=== PATIENT | male | born 1990 | race Caucasian/White ===

== ENCOUNTER 2023-12-24 02:50 | Emergency (ER) | payer OTHER, MEDICAID ==
[~2023-12-24] VITALS: Ht 188 cm; Wt 86.4 kg
[2023-12-24] MEDS: levETIRAcetam 1000 mg/100ml 100 ML IV ONE (03:22)
--- NOTE | 2023-12-24 03:22 | ED.PDOC ---
History of Present Illness HPI Comments 33-year-old male presents to the ED s/p seizure activity at home x 10 minutes ago. Patient was found on the floor by girlfriend after hearing a thump and found patient actively seizing. Patient states that he did take his medication today, but did endorse drinking alcohol earlier in the evening. Patient has some oral trauma to his bottom lip, but no bleeding is noted. Patient is alert and oriented at this time. Chief Complaint: Seizure Time Seen by MD: 03:15 Reviewed Notes: Medications, Allergies Allergies: Coded Allergies: Peanut-containing Drug Products (Verified Allergy, Unknown, 12/24/23) Information Source: Patient Mode of Arrival: EMS Severity: Moderate Timing: Minutes Duration: Since onset Prehospital treatment: None Past Medical History PAST MEDICAL HISTORY: Seizures Surgical History: Denies all surgeries Family History Family History: Reviewed,noncontributory to illness Social History Smoker: Non-Smoker Alcohol: Denies ETOH Use Drugs: Denies Drug Use Lives In: Home Constitutional: denies: chills, diaphoresis, fatigue, fever, malaise, sweats, weakness, others EENTM: denies: blurred vision, double vision, ear bleeding, ear discharge, ear drainage, ear pain, ear ringing, eye pain, eye redness, hearing loss, mouth pain, mouth swelling, nasal discharge, nose bleeding, nose congestion, nose pain, photophobia, tearing, throat pain, throat swelling, voice changes, others Respiratory: denies: cough, hemoptysis, orthopnea, SOB at rest, shortness of breath, SOB with excertion, stridor, wheezing, others Cardiovascular: denies: chest pain, dizzy spells, diaphoresis, Dyspnea on exertion, edema, irregular heart beat, left arm pain, lightheadedness, palpitations, PND, syncope, others Gastrointestinal: denies: abdomen distended, abdominal pain, blood streaked bowels, constipated, diarrhea, dysphagia, difficulty swallowing, hematemesis, melena, nausea, poor appetite, poor fluid intake, rectal bleeding, rectal pain, vomiting, others Genitourinary: denies: burning, dysuria, flank pain, frequency, hematuria, incontinence, penile discharge, penile sore, pain, testicle pain, testicle swelling, urgency, others Neurological: reports: seizure; denies: dizziness, fainting, headache, left sided numbness, left sided weakness, numbness, paresthesia, pre-existing deficit, right sided numbness, right sided weakness, speech problems, tingling, tremors, weakness, others Musculoskeletal: denies: back pain, gout, joint pain, joint swelling, muscle pain, muscle stiffness, neck pain, others Integumetry: denies: bruises, change in color, change in hair/nails, dryness, laceration, lesions, lumps, rash, wounds, others Allergic/Immunocompromised: denies: Difficulty Healing, Frequent Infections, Hives, Itching, others Hematologic/Lymphatic: denies: anemia, blood clots, easy bleeding, easy bruising, swollen glands, others Endocrine: denies: excessive hunger, excessive sweating, excessive thirst, excessive urination, flushing, intolerance to cold, intolerance to heat, unexplained weight gain, unexplained weight loss, others Psychiatric: denies: anxiety, bipolar disorder, depression, hopeless, panic disorder, schizophrenia, sleepless, suicidal, others All Other Systems: Reviewed and Negative Physical Exam General Appearance: Mild Distress, Normal HEENT: Normal ENT Inspection, Pharynx Normal, TMs Normal Neck: Full Range of Motion, Non-Tender, Normal, Normal Inspection Respiratory: Chest Non-Tender, Lungs Clear, No Accessory Muscle Use, No Respiratory Distress, Normal Breath Sounds Cardiovascular: No Edema, No JVD, No Murmur, No Gallop, Normal Peripheral Pulses, Regular Rate/Rhythm Breast Exam: Deferred Gastrointestinal: No Organomegaly, Non Tender, No Pulsatile Mass, Normal Bowel Sounds, Soft Genitalia: Deferred Pelvic: Deferred Rectal: Deferred Extremities: No calf tenderness, Normal capillary refill, Normal inspection, Normal range of motion, Non-tender, No pedal edema Musculoskeletal : Apperance: Normal Neurologic: Alert, electronics engineer II-XII nml as Tested, No Motor Deficits, Normal Affect, Normal Mood, No Sensory Deficits Cerebellar Function: Normal Reflexes: Normal Skin: Dry, Normal Color, Warm Lymphatic: No Adenopathy Was a procedure done? Was a procedure done?: No Differential Dx Considerations may include: Seizure versus pseudoseizures X-Ray, Labs, Meds, VS Vital Signs Date Time Temp Pulse Resp B/P (MAP) Pulse Ox O2 Delivery O2 Flow Rate FiO2 12/24/23 03:00 98.1 102 18 141/89 (106) 99 Lab Test 12/24/23 03:20 12/24/23 03:15 Range/Units Plasma/Serum Blood Alcohol < 3.0 <10 mg/dL Urine Opiates Screen Pending Urine Fentanyl Screen Pending Urine Barbiturates Screen Pending Urine Phencyclidine Screen Pending Urine Amphetamines Screen Pending Urine Benzodiazepines Screen Pending Urine Cocaine Screen Pending Urine Cannabinoids Screen Pending Current Medications Medications (Trade) Dose Ordered Sig/Yvette Route Start Time Stop Time Status Last Admin Levetiracetam 100 ml @ 400 mls/hr ONCE ONCE IV 12/24/23 03:15 12/24/23 03:29 DC 12/24/23 03:22 PATIENT: AISHWARYA PINAT: [id number]: [id number] : 1990 LOC: ER ROOM / BED: / AGE / SEX: 33 / M ADM STATUS: REG ER SERVICE 9 ORDERING PHYSICIAN: LUZ MARIA THOMAS MD PROCEDURE(s): HWOCT - HEAD WITHOUT CONTRAST REASON: Seizure ORDER NUMBER(s): [id number], ACCESSION NUMBER(s): [id number] EXAM: CT HEAD WITHOUT CONTRAST INDICATION: Seizure TECHNIQUE: CT of the head without intravenous contrast. Radiation Dose : 1. Head: CT Dose: CTDI volume is 64.32 mGy. Dose-length product is 1030.89 mGy*cm The dose indicators for CT are the volume Computed Tomography (CT) Dose Index (CTDIvol) and the Dose Length Product (DLP), and are measured in units of mGy and mGy-cm, respectively. These indicators are not patient dose, but values generated from the CT scanner acquisition factors. The report includes radiation exposure data for exposures received during this examination. COMPARISON: None FINDINGS: There is no evidence of acute intracranial hemorrhage, extra-axial collection, mass effect, midline shift, herniation or hydrocephalus. The ventricles, sulci and cisterns are age appropriate. The goldstein-white differentiation is intact. The visualized paranasal sinuses and mastoid air cells are clear. The surrounding soft tissues and osseous structures are unremarkable. IMPRESSION: No acute intracranial abnormality. ATED BY: SAAD PORTILLO MD DICTATED DATE/TIME: 12/24/23438 SIGNED BY: SAAD PORTILLO MD SIGNED DATE/TIME: 12/24/23438 Alcohol level is less than three.. The patient is alert oriented signs for. He bit his lip otherwise he claims to be compliant with medication. He was educated about drinking in seizures not coexisting together. Time of 1ST Reevaluation: 03:45 Reevaluation 1ST: Unchanged Patient Education/Counseling: Diagnosis, Treatment, Prognosis Family Education/Counseling: No Family Present Departure 1 Departure Time of Disposition: 05:00 Impression: Primary Impression: Alcohol abuse Additional Impression: Seizures Disposition: HOME / SELF CARE / HOMELESS Condition: Fair Additional Instructions: Reassessed patient, vital signs stable. Denies any new symptoms. Patient is able to tolerate PO and ambulate/be mobile at their baseline without concern. Risks and benefits of all medications given or prescribed, if any, discussed. All lab work, imaging and diagnostic studies were reviewed by me. The patient was counseled extensively on my clinical impression, diagnosis, expected course of the disease, and plan, including their follow-up care. Will discharge patient. Patient instructed to follow up with Primary Care Physician within 24-48 hours. Strict return precautions given for further exacerbation of symptoms or for new symptoms. The patient was given the opportunity to ask questions and all questions were answered by myself and the nursing/tech staff. Patient is in agreement with the care plan. The patient verbally expressed understanding of the discharge instructions, including the reasons to return to the Emergency Department. Sease alcohol use. Discharged With: Self Critical Care Note Critical Care Time?: Yes (35 min-critical care time only) Stability Stability form required: No Heart Score Heart Score: Heart Score Response (Comments) Value History N/A 0 EKG N/A 0 Age N/A 0 Risk Factors N/A 0 Troponin N/A 0 Total 0 I personally scribed for LUZ MARIA THOMAS MD ([email or web address]) on 12/24/23 at 03:22. Electronically submitted by Irvin Chao ([email or web address]). I personally scribed for LUZ MARIA THOMAS MD ([email or web address]) on 12/24/23 at 04:58. Electronically submitted by Irvin Chao ([email or web address]). LUZ MARIA THOMAS MD Dec 24, 2023 03:22
--- NOTE | 2023-12-24 04:41 | DVH ---
EXAM: CT HEAD WITHOUT CONTRAST INDICATION: Seizure TECHNIQUE: CT of the head without intravenous contrast. Radiation Dose : 1. Head: CT Dose: CTDI volume is 64.32 mGy. Dose-length product is 1030.89 mGy*cm The dose indicators for CT are the volume Computed Tomography (CT) Dose Index (CTDIvol) and the Dose Length Product (DLP), and are measured in units of mGy and mGy-cm, respectively. These indicators are not patient dose, but values generated from the CT scanner acquisition factors. The report includes radiation exposure data for exposures received during this examination. COMPARISON: None FINDINGS: There is no evidence of acute intracranial hemorrhage, extra-axial collection, mass effect, midline s hift, herniation or hydrocephalus. The ventricles, sulci and cisterns are age appropriate. The goldstein-white differentiation is intact. The visualized paranasal sinuses and mastoid air cells are clear. The surrounding soft tissues and osseous structures are unremarkable. IMPRESSION: No acute intracranial abnormality.
[2023-12-24 05:05] LABS: Amphetamine Screen, Urine Neg (NEGATIVE); Barbiturate Scree,Urine Neg (NEGATIVE); Benzodiazephine Screen, Urine Neg (NEGATIVE); Cannabinoid Screen, Urine Neg (NEGATIVE); Cocaine Screen, Urine Neg (NEGATIVE); Opiate Scree,Urine Neg (NEGATIVE); Phencyclidine Screen, Urine Neg (NEGATIVE)
[2023-12-24 05:18] VITALS: BP 139/82; TEMP 97.9
[2023-12-24 05:19] VITALS: PULSE 92; RESP 18; O2SAT 97
== END 2023-12-24 05:28 | disposition home or self-care (01) ==
LOC: EDBD 02:50 → ER 02:50
DX: F10.10 Alcohol abuse, uncomplicated (principal); R56.9 Unspecified convulsions; Z91.010 Allergy to peanuts
CPT/HCPCS: 36415; 70450; 80307; 80320; 96365; 99291; J1953

== ENCOUNTER 2024-10-18 06:35 | Emergency (ER) | payer MEDICAID, OTHER ==
[~2024-10-18] VITALS: Ht 175.3 cm; Wt 77.2 kg
--- NOTE | 2024-10-18 06:58 | ED.PDOC ---
HPI (NEURO) HPI Comments 33 year old male presents to the ED via EMS with a chief complaint of seizure onset today (10/18/24). Per EMS, they got a call about 1 hour ago, patient experienced a seizure, called 911, patient refused treatment. About 45 minutes after they received 2nd call, patient experienced a 2nd seizure. Upon EMS arrival, they noticed patient had deformity to bridge of nose, with nose bleeding. EMS was told by , patient has a , sleeping pattern was thrown off, it is rare for patient to experience 2 seizures in 1 day. He is taking Keppra, is compliant with medication. Patient does not recall events. PMHx seizures. No other symptoms or modifying factors present at this time. Chief Complaint: Seizure Time Seen by MD: 06:40 Reviewed Notes: Medications, Allergies Information Source: Patient, Emergency Med Personnel Mode of Arrival: EMS Severity: Moderate Timing: Hours Duration: Since onset Prehospital treatment: None Seizure Quality: Tonic-clonic Headache Quality: Other Seizure Location: Generalized Onset: At rest, With light exertion Before: Normal During: Awake History of: Seizure Disorder Modifying factors: Nothing Past Medical History PAST MEDICAL HISTORY: Seizures Surgical History: Denies all surgeries Family History Family History: Reviewed,noncontributory to illness Social History Smoker: Non-Smoker Alcohol: Denies ETOH Use Drugs: Denies Drug Use Lives In: Home Constitutional: denies: chills, diaphoresis, fatigue, fever, malaise, sweats, weakness, others EENTM: reports: nose bleeding; denies: blurred vision, double vision, ear bleeding, ear discharge, ear drainage, ear pain, ear ringing, eye pain, eye redness, hearing loss, mouth pain, mouth swelling, nasal discharge, nose congestion, nose pain, photophobia, tearing, throat pain, throat swelling, voice changes, others Respiratory: denies: cough, hemoptysis, orthopnea, SOB at rest, shortness of breath, SOB with excertion, stridor, wheezing, others Cardiovascular: denies: chest pain, dizzy spells, diaphoresis, Dyspnea on exertion, edema, irregular heart beat, left arm pain, lightheadedness, palpitations, PND, syncope, others Gastrointestinal: denies: abdomen distended, abdominal pain, blood streaked bowels, constipated, diarrhea, dysphagia, difficulty swallowing, hematemesis, melena, nausea, poor appetite, poor fluid intake, rectal bleeding, rectal pain, vomiting, others Genitourinary: denies: burning, dysuria, flank pain, frequency, hematuria, incontinence, penile discharge, penile sore, pain, testicle pain, testicle swelling, urgency, others Neurological: reports: seizure; denies: dizziness, fainting, headache, left sided numbness, left sided weakness, numbness, paresthesia, pre-existing deficit, right sided numbness, right sided weakness, speech problems, tingling, tremors, weakness, others Musculoskeletal: denies: back pain, gout, joint pain, joint swelling, muscle pain, muscle stiffness, neck pain, others Integumetry: denies: bruises, change in color, change in hair/nails, dryness, laceration, lesions, lumps, rash, wounds, others Allergic/Immunocompromised: denies: Difficulty Healing, Frequent Infections, Hives, Itching, others Hematologic/Lymphatic: denies: anemia, blood clots, easy bleeding, easy bruising, swollen glands, others Endocrine: denies: excessive hunger, excessive sweating, excessive thirst, excessive urination, flushing, intolerance to cold, intolerance to heat, unexplained weight gain, unexplained weight loss, others Psychiatric: denies: anxiety, bipolar disorder, depression, hopeless, panic disorder, schizophrenia, sleepless, suicidal, others All Other Systems: Reviewed and Negative Physical Exam General Appearance: Moderate Distress HEENT: Pharynx Normal, TMs Normal, Other (Right blood at the anterior nares possibly from fall with deformity of the nasal bone) Neck: Full Range of Motion, Non-Tender, Normal, Normal Inspection Respiratory: Chest Non-Tender, Lungs Clear, No Accessory Muscle Use, No Respiratory Distress, Normal Breath Sounds Cardiovascular: No Edema, No JVD, No Murmur, No Gallop, Normal Peripheral Pulses, Regular Rate/Rhythm Breast Exam: Deferred Gastrointestinal: No Organomegaly, Non Tender, No Pulsatile Mass, Normal Bowel Sounds, Soft Genitalia: Deferred Pelvic: Deferred Rectal: Deferred Extremities: No calf tenderness, Normal capillary refill, Normal inspection, Normal range of motion, Non-tender, No pedal edema Musculoskeletal : Apperance: Normal Neurologic: Alert, automotive glass mechanic II-XII nml as Tested, No Motor Deficits, Normal Affect, Normal Mood, No Sensory Deficits Cerebellar Function: NOT DONE Reflexes: NOT DONE Skin: Dry, Normal Color, Warm Peripheral Pulses: 3+ Radial (R), 3+ Radial (L) Lymphatic: No Adenopathy EKG EKG : Pulse Rate (adult): 120 Cardiac Rhythm: ST Was a procedure done? Was a procedure done?: No Differential Diagnosis (SZ) Seizure: Psychogenic Seizure, Closed Head Injury, CVA/TIA X-Ray, Labs, Meds, VS Vital Signs Date Time Temp Pulse Resp B/P (MAP) Pulse Ox O2 Delivery O2 Flow Rate FiO2 10/18/24 08:22 118 16 94 Room Air* 0 21 10/18/24 07:12 120 10/18/24 06:59 120 10/18/24 06:35 96.4 118 16 138/65 94 96.4 Lab Test 10/18/24 07:25 Range/Units White Blood Count 12.6 H 4.4-10.8 10^3/uL Red Blood Count 4.95 4.5-5.90 10^6/uL Hemoglobin 16.0 13.5-17.5 g/dL Hematocrit 43.7 41.0-53.0 % Mean Corpuscular Volume 88.4 80.0-100.0 fL Mean Corpuscular Hemoglobin 32.4 H 28.0-32.0 pg Mean Corpuscular Hemoglobin Concent 36.6 H 32.0-36.0 g/dL Red Cell Distribution Width 13.1 11.8-14.3 % Platelet Count 249 140-450 10^3/uL Mean Platelet Volume 9.1 6.9-10.8 fL Neutrophils (%) (Auto) 88.5 H 37.0-80.0 % Lymphocytes (%) (Auto) 5.3 L 10.0-50.0 % Monocytes (%) (Auto) 6.1 0.0-12.0 % Eosinophils (%) (Auto) 0.0 0.0-7.0 % Basophils (%) (Auto) 0.1 0.0-2.0 % Neutrophils # (Auto) 11.2 H 1.6-8.6 10 ^3/uL Lymphocytes # (Auto) 0.7 0.4-5.4 10 ^3/uL Monocytes # (Auto) 0.8 0-1.3 10 ^3/uL Eosinophils # (Auto) 0 0-0.8 10 ^3/uL Basophils # (Auto) 0 0-0.2 10 ^3/uL Nucleated Red Blood Cells 0.0 % Sodium Level 141 136-145 mmol/L Potassium Level 3.6 3.5-5.1 mmol/L Chloride Level 107 98-107 mmol/L Carbon Dioxide Level 19 L 20-31 mmol/L Anion Gap 15 5-15 Blood Urea Nitrogen 9 9-23 mg/dL Creatinine 1.21 0.700-1.30 mg/dL Glomerular Filtration Rate Calc 82 >90 mL/min BUN/Creatinine Ratio 7.4 L 10.0-20.0 Serum Glucose 148 H 74-106 mg/dL Calcium Level 9.5 8.7-10.4 mg/dL Current Medications Medications (Trade) Dose Ordered Sig/Yvette Route Start Time Stop Time Status Last Admin Levetiracetam 100 ml @ 400 mls/hr ONCE ONCE IV 10/18/24 08:00 10/18/24 08:14 DC 10/18/24 08:08 Sodium Chloride 1,000 ml @ 1,000 mls/hr Q1H ONCE IV 10/18/24 07:00 10/18/24 07:59 DC 10/18/24 08:08 Ondansetron HCl (Zofran) 4 mg ONCE ONCE IV 10/18/24 07:30 10/18/24 07:31 DC 10/18/24 08:08 Patient answers questions. He did fall landing in his face. Multiple seizures. He does take his medications. He does not remember the event. On examination deformity of the nose with dried blood. Establish intravenous access. Was given fluids. Was given Keppra. Explained to the patient. Continue monitoring. EKG reviewed does show sinus tachycardia. [address] [address] Ph: [phone] DIAGNOSTIC IMAGING Diagnostic Imaging Report : [id number] Signed PATIENT: ARNAV PINA ACCT: [id number] UNIT: [id number] : 1990 LOC: ER ROOM / BED: / AGE / SEX: 33 / M ADM STATUS: REG ER SERVICE [id number] ORDERING PHYSICIAN: LACI SANTILLAN MD PROCEDURE(s): FAC2C - MAXILLOFACIAL WITHOUT REASON: fall ORDER NUMBER(s): [id number], ACCESSION NUMBER(s): [id number] CLINICAL INDICATION: Fall TECHNIQUE: Noncontrast CT of the facial bones was performed. Sagittal and coronal reformatted images are provided. COMPARISON: CT HEAD WITHOUT CONTRAST on DOS: 12/24/23 CT Dose: CTDI volume is 66.95 mGy. Dose-length product is 1761.4 mGy*cm FINDINGS: Motion degraded study. Evaluation also limited by streak artifact from dental amalgam. No displaced fracture or dislocation. Mucosal thickening in the right maxillary sinus. Reversal of the cervical lordosis. IMPRESSION: 1. Suboptimal study due to motion artifact and streak artifact from dental amalgam. No displaced fracture. All CT scans at this medical facility are performed using dose modulation techniques as appropriate to a performed exam including the following: Automated exposure control was utilized; adjustment of the MA and/or KV according to patient size; and use of iterative reconstruction technique. ATED BY: BRIAN GOVEA MD DICTATED DATE/TIME: 10/18/24 075 SIGNED BY: BRIAN GOVEA MD SIGNED DATE/TIME: 10/18/24752 CC: Time of 1ST Reevaluation: 07:10 Reevaluation 1ST: Unchanged Patient Education/Counseling: Diagnosis, Treatment, Prognosis Family Education/Counseling: No Family Present Departure 1 Departure Time of Disposition: 07:01 Impression: Primary Impression: Metabolic encephalopathy Additional Impression: Seizures Disposition: 02 SHORT TERM HOSPITAL Admit to: Med Surg Condition: Guarded Critical Care Note Critical Care Time?: No Stability Stability form required: No Heart Score Heart Score: Heart Score Response (Comments) Value History Slightly Suspicious 0 EKG Normal 0 Age <45 0 Risk Factors No known risk factors 0 Troponin N/A 0 Total 0 I personally scribed for LACI SANTILLAN MD ([email or web address]) on 10/18/24 at 06:58. Electronically submitted by Ruben Mcwilliams ([email or web address]). I personally scribed for LACI SANTILLAN MD ([email or web address]) on 10/18/24 at 07:12. Electronically submitted by Ruben Mcwilliams ([email or web address]). I personally scribed for LACI SANTILLAN MD ([email or web address]) on 10/18/24 at 08:51. Electronically submitted by Ruben Mcwilliams ([email or web address]). LACI SANTILLAN MD Oct 18, 2024 06:58
[2024-10-18 07:53] LABS: Hematocrit 43.7 % (41.0-53.0); Hemoglobin 16.0 g/dL (13.5-17.5); Nucleated Red Blood Cells % 0.0 %
[2024-10-18 07:55] LABS: Chloride 107 mmol/L (98-107); Potassium 3.6 mmol/L (3.5-5.1); Sodium 141 mmol/L (136-145)
--- NOTE | 2024-10-18 07:55 | DVH ---
CLINICAL INDICATION: Fall TECHNIQUE: Noncontrast CT of the facial bones was performed. Sagittal and coronal reformatted images are provided. COMPARISON: CT HEAD WITHOUT CONTRAST on DOS: 12/24/23 CT Dose: CTDI volume is 66.95 mGy. Dose-length product is 1761.4 mGy*cm FINDINGS: Motion degraded study. Evaluation also limited by streak artifact from dental amalgam. No displaced f racture or dislocation. Mucosal thickening in the right maxillary sinus. Reversal of the cervical lo rdosis. IMPRESSION: 1. Suboptimal study due to motion artifact and streak artifact from dental amalgam. No displaced fra cture. All CT scans at this medical facility are performed using dose modulation techniques as appropriate t o a performed exam including the following: Automated exposure control was utilized; adjustment of th e MA and/or KV according to patient size; and use of iterative reconstruction technique.
[2024-10-18 07:56] LABS: Anion Gap 15 (5-15); Calcium 9.5 mg/dL (8.7-10.4); Mean Corpuscular Hemoglobin 32.4 pg (28.0-32.0); Mean Corpuscular Volume 88.4 fL (80.0-100.0)
[2024-10-18 07:58] LABS: Carbon Dioxide 19 mmol/L (20-31)
[2024-10-18 08:01] LABS: BUN/Creatinine Ratio 7.4 (10.0-20.0); Blood Urea Nitrogen 9 mg/dL (9-23)
[2024-10-18 08:03] LABS: Glucose 148 mg/dL (74-106)
[2024-10-18] MEDS: levETIRAcetam 500 mg/100ml 100 ML IV ONE (08:08)
[2024-10-18] MEDS: SODIUM CHLORIDE 0.9% 1,000 ML IV ONE ×2 (08:08→08:13)
[2024-10-18] MEDS: ONDANSETRON HCL 4 MG/2 ML VIAL IV ONE (08:08)
[2024-10-18 08:22] VITALS: PULSE 118; RESP 16; O2SAT 94
[2024-10-18] MEDS: LORazepam 2MG/ML-1ML VIAL ONE (09:05)
[2024-10-18] MEDS: ACETAMINOPHEN 325 MG TAB PO ONE (11:56)
[2024-10-18 12:10] VITALS: BP 135/72; PULSE 98; RESP 16; TEMP 98.1; O2SAT 96
--- NOTE | 2024-10-18 13:25 | ECG ---
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
== END 2024-10-18 12:16 | disposition short-term general hospital (02) ==
LOC: EDBD 06:35 → ER 06:35
DX: G93.41 Metabolic encephalopathy (principal); G40.909 Epilepsy, unspecified, not intractable, without status epilepticus
CPT/HCPCS: 36415; 70486; 80048; 85025; 93005; 96365; 96375; 99285; J1953; J2405; J7030; 96361; 96374

== ENCOUNTER 2024-12-01 03:58 | Emergency (ER) | payer OTHER ==
[~2024-12-01] VITALS: Ht 177.8 cm; Wt 81.8 kg
[2024-12-01] MEDS: LORazepam 2MG/ML-1ML VIAL ONE (04:26)
[2024-12-01] MEDS: LORazepam 2MG/ML-1ML VIAL IV ONE (04:26)
[2024-12-01] MEDS: ONDANSETRON HCL 4 MG/2 ML VIAL IV ONE (04:39)
[2024-12-01] MEDS: levETIRAcetam 1000 mg/100ml 100 ML IV ONE (04:39)
[2024-12-01] MEDS: METOCLOPRAMIDE HCL 5MG/ml INJ 2ml VIAL IV ONE (05:40)
[2024-12-01] MEDS: SODIUM CHLORIDE 0.9% 1,000 ML IV ONE (05:40)
[2024-12-01 05:44] LABS: Hematocrit 43.8 % (41.0-53.0); Hemoglobin 15.5 g/dL (13.5-17.5); Mean Corpuscular Hemoglobin 31.0 pg (28.0-32.0); Mean Corpuscular Volume 87.4 fL (80.0-100.0); Nucleated Red Blood Cells % 0.2 %
[2024-12-01 05:55] LABS: Alanine Aminotransferase 25 U/L (7-40); Alkaline Phosphatase 110 U/L (46-116); Anion Gap 16 (5-15); BUN/Creatinine Ratio 6.8 (10.0-20.0); Calcium 9.1 mg/dL (8.7-10.4); Carbon Dioxide 22 mmol/L (20-31); Total Protein 7.8 g/dL (5.7-8.2)
[2024-12-01 05:56] LABS: Bilirubin, Total 0.4 mg/dL (0.2-1.0)
[2024-12-01 05:59] LABS: Albumin 4.8 g/dL (3.2-4.8); Blood Urea Nitrogen 7 mg/dL (9-23); Chloride 108 mmol/L (98-107); Glucose 113 mg/dL (74-106); Potassium 3.1 mmol/L (3.5-5.1); Sodium 146 mmol/L (136-145)
[2024-12-01 06:02] VITALS: PULSE 67; O2SAT 97
--- NOTE | 2024-12-01 06:49 | ED.PDOC ---
HPI (NEURO) HPI Comments This is a 34 year old male GERALDA presenting to the ED with chief complaint of tremors and N/V. Patient reports that he has been experiencing tremors with associated anxiety, nausea, and vomiting since this morning. Patient relays that he drank alcohol last night, but has not been able to take his seizure medication Keppra due to his vomiting this morning. Patient states he feels much better now after receiving medication. Patient denies any diarrhea, abdominal pain, headache, dizziness, chest pain, or SOB. Chief Complaint: Seizure Time Seen by MD: 06:48 Reviewed Notes: Nurses Notes, Legal File Clerk Notes, Medications, Allergies Information Source: Patient, Emergency Med Personnel Mode of Arrival: EMS Severity: Moderate Timing: Hours Duration: Since onset Prehospital treatment: None Onset: At rest Circumstances: Other (ETOH consumption) Symptoms: Other (Tremors) History of: Seizure Disorder, Substance abuse Associated Signs and Symptoms: Nausea, Vomiting Past Medical History PAST MEDICAL HISTORY: Seizures Surgical History: Denies all surgeries Family History Family History: Reviewed,noncontributory to illness Social History Smoker: Non-Smoker Alcohol: Heavy Drugs: Denies Drug Use Lives In: Home Constitutional: denies: chills, diaphoresis, fatigue, fever, malaise, sweats, weakness, others EENTM: denies: blurred vision, double vision, ear bleeding, ear discharge, ear drainage, ear pain, ear ringing, eye pain, eye redness, hearing loss, mouth pain, mouth swelling, nasal discharge, nose bleeding, nose congestion, nose pain, photophobia, tearing, throat pain, throat swelling, voice changes, others Respiratory: denies: cough, hemoptysis, orthopnea, SOB at rest, shortness of breath, SOB with excertion, stridor, wheezing, others Cardiovascular: denies: chest pain, dizzy spells, diaphoresis, Dyspnea on exertion, edema, irregular heart beat, left arm pain, lightheadedness, palpitations, PND, syncope, others Gastrointestinal: reports: nausea, vomiting; denies: abdomen distended, abdominal pain, blood streaked bowels, constipated, diarrhea, dysphagia, difficulty swallowing, hematemesis, melena, poor appetite, poor fluid intake, rectal bleeding, rectal pain, others Genitourinary: denies: burning, dysuria, flank pain, frequency, hematuria, incontinence, penile discharge, penile sore, pain, testicle pain, testicle swelling, urgency, others Neurological: reports: tremors; denies: dizziness, fainting, headache, left sided numbness, left sided weakness, numbness, paresthesia, pre-existing deficit, right sided numbness, right sided weakness, seizure, speech problems, tingling, weakness, others Musculoskeletal: denies: back pain, gout, joint pain, joint swelling, muscle pain, muscle stiffness, neck pain, others Integumetry: denies: bruises, change in color, change in hair/nails, dryness, laceration, lesions, lumps, rash, wounds, others Allergic/Immunocompromised: denies: Difficulty Healing, Frequent Infections, Hives, Itching, others Hematologic/Lymphatic: denies: anemia, blood clots, easy bleeding, easy bruising, swollen glands, others Endocrine: denies: excessive hunger, excessive sweating, excessive thirst, excessive urination, flushing, intolerance to cold, intolerance to heat, unexplained weight gain, unexplained weight loss, others Psychiatric: denies: anxiety, bipolar disorder, depression, hopeless, panic disorder, schizophrenia, sleepless, suicidal, others All Other Systems: Reviewed and Negative Physical Exam General Appearance: No Apparent Distress, Normal HEENT: Normal ENT Inspection, Pharynx Normal, TMs Normal Neck: Full Range of Motion, Non-Tender, Normal, Normal Inspection Respiratory: Chest Non-Tender, Lungs Clear, No Accessory Muscle Use, No Respiratory Distress, Normal Breath Sounds Cardiovascular: No Edema, No JVD, No Murmur, No Gallop, Normal Peripheral Pulses, Regular Rate/Rhythm Breast Exam: Deferred Gastrointestinal: No Organomegaly, Non Tender, No Pulsatile Mass, Normal Bowel Sounds, Soft Genitalia: Deferred Pelvic: Deferred Rectal: Deferred Extremities: No calf tenderness, Normal capillary refill, Normal inspection, Normal range of motion, Non-tender, No pedal edema Musculoskeletal : Apperance: Normal Neurologic: Alert, home manager II-XII nml as Tested, No Motor Deficits, Normal Affect, Normal Mood, No Sensory Deficits Cerebellar Function: Normal Reflexes: Normal Skin: Dry, Normal Color, Warm Lymphatic: No Adenopathy Was a procedure done? Was a procedure done?: No Differential Diagnosis (SZ) Seizure: Epilepsy-Break Through, Epilepsy-Status CVA: Delirium Tremens General Weakness: Encephalopathy Headache: N/A X-Ray, Labs, Meds, VS Vital Signs Date Time Temp Pulse Resp B/P (MAP) Pulse Ox O2 Delivery O2 Flow Rate FiO2 12/01/24 06:02 67 97 Room Air* 0 21 12/01/24 04:47 98.3 115 23 127/108 (114) 97 98.3 12/01/24 04:00 98.3 135 24 197/135 98 98.3 Lab Test 12/01/24 05:31 Range/Units White Blood Count 7.5 4.4-10.8 10^3/uL Red Blood Count 5.01 4.5-5.90 10^6/uL Hemoglobin 15.5 13.5-17.5 g/dL Hematocrit 43.8 41.0-53.0 % Mean Corpuscular Volume 87.4 80.0-100.0 fL Mean Corpuscular Hemoglobin 31.0 28.0-32.0 pg Mean Corpuscular Hemoglobin Concent 35.5 32.0-36.0 g/dL Red Cell Distribution Width 12.6 11.8-14.3 % Platelet Count 225 140-450 10^3/uL Mean Platelet Volume 8.4 6.9-10.8 fL Neutrophils (%) (Auto) 76.9 37.0-80.0 % Lymphocytes (%) (Auto) 13.9 10.0-50.0 % Monocytes (%) (Auto) 8.0 0.0-12.0 % Eosinophils (%) (Auto) 0.7 0.0-7.0 % Basophils (%) (Auto) 0.5 0.0-2.0 % Neutrophils # (Auto) 5.8 1.6-8.6 10 ^3/uL Lymphocytes # (Auto) 1.0 0.4-5.4 10 ^3/uL Monocytes # (Auto) 0.6 0-1.3 10 ^3/uL Eosinophils # (Auto) 0.1 0-0.8 10 ^3/uL Basophils # (Auto) 0 0-0.2 10 ^3/uL Nucleated Red Blood Cells 0.2 % Sodium Level 146 H 136-145 mmol/L Potassium Level 3.1 L 3.5-5.1 mmol/L Chloride Level 108 H 98-107 mmol/L Carbon Dioxide Level 22 20-31 mmol/L Anion Gap 16 H 5-15 Blood Urea Nitrogen 7 L 9-23 mg/dL Creatinine 1.03 0.700-1.30 mg/dL Glomerular Filtration Rate Calc 98 >90 mL/min BUN/Creatinine Ratio 6.8 L 10.0-20.0 Serum Glucose 113 H 74-106 mg/dL Calcium Level 9.1 8.7-10.4 mg/dL Total Bilirubin 0.4 0.2-1.0 mg/dL Aspartate Amino Transferase (AST) 27 13-40 U/L Alanine Aminotransferase (ALT) 25 7-40 U/L Alkaline Phosphatase 110 46-116 U/L Total Protein 7.8 5.7-8.2 g/dL Albumin 4.8 3.2-4.8 g/dL Levetiracetam Level Pending Current Medications Medications (Trade) Dose Ordered Sig/Yvette Route Start Time Stop Time Status Last Admin Lorazepam (Ativan Inj) 1 mg ONCE ONCE IV 12/01/24 04:15 12/01/24 04:16 DC 12/01/24 04:26 Levetiracetam 100 ml @ 400 mls/hr ONCE ONCE IV 12/01/24 04:45 12/01/24 04:59 DC 12/01/24 04:39 Ondansetron HCl (Zofran) 4 mg ONCE ONCE IV 12/01/24 04:45 12/01/24 04:46 DC 12/01/24 04:39 Sodium Chloride 1,000 ml @ 1,000 mls/hr Q1H ONCE IV 12/01/24 05:15 12/01/24 06:14 DC 12/01/24 05:40 Metoclopramide HCl (Reglan Injection) 5 mg ONCE ONCE IV 12/01/24 05:30 12/01/24 05:31 DC 12/01/24 05:40 Time of 1ST Reevaluation: 07:47 Reevaluation 1ST: Improved Patient Education/Counseling: Diagnosis, Treatment Family Education/Counseling: No Family Present Departure 1 Departure Time of Disposition: 07:45 (Patient is feeling significantly better. We will discharge patient home with outpatient follow up) Impression: Primary Impression: Breakthrough seizure Disposition: 01 HOME / SELF CARE / HOMELESS Condition: Stable Additional Instructions: You had a breakthrough seizure today. It is important to take your seizure medication. You should stay well rested and well hydrated. You should follow up with your regular doctor within 1 week. If your symptoms worsen or you have any other concerns then please return to the emergency room. Discharged With: Self Critical Care Note Critical Care Time?: No Stability Stability form required: No Heart Score Heart Score: Heart Score Response (Comments) Value History N/A 0 EKG N/A 0 Age N/A 0 Risk Factors N/A 0 Troponin N/A 0 Total 0 I personally scribed for VINICIO CHI MD ([email or web address]) on 12/01/24 at 06:49. Electronically submitted by Yoan Rios ([email or web address]). VINICIO CHI MD Dec 01, 2024 06:49
[2024-12-01 08:00] VITALS: BP 139/82; PULSE 74; RESP 16; TEMP 98.1; O2SAT 95
== END 2024-12-01 09:00 | disposition home or self-care (01) ==
LOC: EDBD 03:58 → ER 03:58
DX: G40.909 Epilepsy, unspecified, not intractable, without status epilepticus (principal); R11.2 Nausea with vomiting, unspecified
CPT/HCPCS: 36415; 80053; 80320; 82542; 85025; 96361; 96365; 96375; 99284; J1953; J2060; J2405; J2765; J7030; 96374

== ENCOUNTER 2025-02-01 04:58 | Emergency (ER) | payer OTHER ==
[~2025-02-01] VITALS: Ht 177.8 cm; Wt 82.0 kg
[2025-02-01 05:31] VITALS: PULSE 115; O2SAT 98
--- NOTE | 2025-02-01 05:32 | PRN ---
Misceleneous Note Note Note RAPID MEDICAL ASSESSMENT NOTE: 34-year-old male who presents with nausea and vomiting. Per patient has a history of seizure disorder, has been noncompliant with Keppra. No seizure prior to arrival. He reports aura of seizure is nausea. Physical exam: General: Awake, alert and oriented. Actively retching. HEENT: The head is normocephalic and atraumatic. Conjunctivae are clear without exudates or hemorrhage. Sclera is non-icteric. Neck: Normal range of motion. No JVD. Cardiac: Regular rate Respiratory: No signs of respiratory distress. No Stridor. Neurological: The patient is awake, alert and oriented to person, place, and time with normal speech. Speech is clear. There is no facial asymmetry. Plan: IV fluids, antiemetics, Keppra bolus. Sign out to oncoming provider pending full evaluation and re-assessment. ADRIEL JUARES MD Feb 01, 2025 05:32
[2025-02-01] MEDS: levETIRAcetam 1000 mg/100ml 100 ML IV ONE (05:34)
[2025-02-01] MEDS: SODIUM CHLORIDE 0.9% 1,000 ML IV ONE ×5 (05:35→10:39)
[2025-02-01] MEDS: ONDANSETRON HCL 4 MG/2 ML VIAL IV ONE ×2 (05:41→09:14)
[2025-02-01] MEDS: LORazepam 2MG/ML-1ML VIAL IV ONE (06:51)
--- NOTE | 2025-02-01 07:12 | ED.PDOC ---
History of Present Illness HPI Comments 34-year-old male MAYCOL with prior medical history of seizure(last seizure was two months ago and takes Keppra for medication) and the chief complaint of nausea and vomiting. Nurse reports that the patient has been given 500 mL fluids due from the patient having had nausea and dry heaves since earlier today. Family stated to EMS on scene the the patient does have these symptoms which is aura before having a seizure. Denies any other symptoms at this time. Denies chills, fever, /D, SOB, CP. No other associated symptoms, modifiers, recent injuries or sick contacts present at this time. Chief Complaint: Nausea/Vomiting Time Seen by MD: 07:11 Reviewed Notes: Nurses Notes, Medications, Allergies Allergies: Coded Allergies: Peanut-containing Drug Products (Verified Allergy, Unknown, 12/24/23) Mode of Arrival: EMS Severity: Moderate Timing: Hours Duration: Since onset, Hours Prehospital treatment: None Past Medical History PAST MEDICAL HISTORY: Seizures (Last seizure being two months ago and takes Keppra for medication) Surgical History: Denies all surgeries Family History Family History: Reviewed,noncontributory to illness, Unknown Social History Smoker: Non-Smoker Alcohol: Heavy Drugs: Denies Drug Use Lives In: Home Constitutional: denies: chills, diaphoresis, fatigue, fever, malaise, sweats, weakness, others EENTM: denies: blurred vision, double vision, ear bleeding, ear discharge, ear drainage, ear pain, ear ringing, eye pain, eye redness, hearing loss, mouth pain, mouth swelling, nasal discharge, nose bleeding, nose congestion, nose pain, photophobia, tearing, throat pain, throat swelling, voice changes, others Respiratory: denies: cough, hemoptysis, orthopnea, SOB at rest, shortness of breath, SOB with excertion, stridor, wheezing, others Cardiovascular: denies: chest pain, dizzy spells, diaphoresis, Dyspnea on exertion, edema, irregular heart beat, left arm pain, lightheadedness, palpitations, PND, syncope, others Gastrointestinal: reports: nausea (And dry heaves); denies: abdomen distended, abdominal pain, blood streaked bowels, constipated, diarrhea, dysphagia, difficulty swallowing, hematemesis, melena, poor appetite, poor fluid intake, rectal bleeding, rectal pain, vomiting, others Genitourinary: denies: burning, dysuria, flank pain, frequency, hematuria, incontinence, penile discharge, penile sore, pain, testicle pain, testicle swelling, urgency, others Neurological: denies: dizziness, fainting, headache, left sided numbness, left sided weakness, numbness, paresthesia, pre-existing deficit, right sided numbness, right sided weakness, seizure, speech problems, tingling, tremors, weakness, others Musculoskeletal: denies: back pain, gout, joint pain, joint swelling, muscle pain, muscle stiffness, neck pain, others Integumetry: denies: bruises, change in color, change in hair/nails, dryness, laceration, lesions, lumps, rash, wounds, others Allergic/Immunocompromised: denies: Difficulty Healing, Frequent Infections, Hives, Itching, others Hematologic/Lymphatic: denies: anemia, blood clots, easy bleeding, easy bruising, swollen glands, others Endocrine: denies: excessive hunger, excessive sweating, excessive thirst, excessive urination, flushing, intolerance to cold, intolerance to heat, unexplained weight gain, unexplained weight loss, others Psychiatric: denies: anxiety, bipolar disorder, depression, hopeless, panic disorder, schizophrenia, sleepless, suicidal, others All Other Systems: Reviewed and Negative Physical Exam General Appearance: No Apparent Distress, Normal HEENT: Normal ENT Inspection, Pharynx Normal, TMs Normal Neck: Full Range of Motion, Non-Tender, Normal, Normal Inspection Respiratory: Chest Non-Tender, Lungs Clear, No Accessory Muscle Use, No Respiratory Distress, Normal Breath Sounds Cardiovascular: No Edema, No JVD, No Murmur, No Gallop, Normal Peripheral Pulses, Regular Rate/Rhythm Breast Exam: Deferred Gastrointestinal: No Organomegaly, Non Tender, No Pulsatile Mass, Normal Bowel Sounds, Soft Genitalia: Deferred Pelvic: Deferred Rectal: Deferred Extremities: No calf tenderness, Normal capillary refill, Normal inspection, Normal range of motion, Non-tender, No pedal edema Musculoskeletal : Apperance: Normal Neurologic: Alert, procurement professional II-XII nml as Tested, No Motor Deficits, Normal Affect, Normal Mood, No Sensory Deficits Cerebellar Function: Normal Reflexes: Normal Skin: Dry, Normal Color, Warm Lymphatic: No Adenopathy Was a procedure done? Was a procedure done?: No Differential Dx Considerations may include: Anemia Electrolyte imbalance X-Ray, Labs, Meds, VS Vital Signs Date Time Temp Pulse Resp B/P (MAP) Pulse Ox O2 Delivery O2 Flow Rate FiO2 02/01/25 15:16 97.9 95 20 135/70 (91) 99 97.9 02/01/25 12:00 99 02/01/25 11:25 98.0 101 13 148/76 (100) 99 98.0 02/01/25 10:55 Room Air* 0 21 02/01/25 10:31 97.8 95 14 147/75 (99) 98 97.8 02/01/25 08:32 98.0 110 19 137/97 (110) 97 98.0 02/01/25 08:00 112 02/01/25 06:00 97.7 113 25 116/83 (94) 98 97.7 02/01/25 05:41 114 17 169/117 (134) 98 02/01/25 05:31 115 98 Room Air* 0 21 02/01/25 05:06 98.1 125 22 139/97 100 98.1 Lab Test 02/01/25 09:56 02/01/25 07:49 02/01/25 06:57 Range/Units Lactic Acid Level 5.1 *H 5.2 *H 0.4-2.0 mmol/L White Blood Count 10.9 H 4.4-10.8 10^3/uL Red Blood Count 4.71 4.5-5.90 10^6/uL Hemoglobin 14.5 13.5-17.5 g/dL Hematocrit 41.6 41.0-53.0 % Mean Corpuscular Volume 88.3 80.0-100.0 fL Mean Corpuscular Hemoglobin 30.8 28.0-32.0 pg Mean Corpuscular Hemoglobin Concent 34.9 32.0-36.0 g/dL Red Cell Distribution Width 13.1 11.8-14.3 % Platelet Count 239 140-450 10^3/uL Mean Platelet Volume 8.5 6.9-10.8 fL Neutrophils (%) (Auto) 83.7 H 37.0-80.0 % Lymphocytes (%) (Auto) 9.8 L 10.0-50.0 % Monocytes (%) (Auto) 6.1 0.0-12.0 % Eosinophils (%) (Auto) 0.1 0.0-7.0 % Basophils (%) (Auto) 0.3 0.0-2.0 % Neutrophils # (Auto) 9.1 H 1.6-8.6 10 ^3/uL Lymphocytes # (Auto) 1.1 0.4-5.4 10 ^3/uL Monocytes # (Auto) 0.7 0-1.3 10 ^3/uL Eosinophils # (Auto) 0 0-0.8 10 ^3/uL Basophils # (Auto) 0 0-0.2 10 ^3/uL Nucleated Red Blood Cells 0.5 % Sodium Level 145 136-145 mmol/L Potassium Level 3.3 L 3.5-5.1 mmol/L Chloride Level 110 H 98-107 mmol/L Carbon Dioxide Level 20 20-31 mmol/L Anion Gap 15 5-15 Blood Urea Nitrogen 5 L 9-23 mg/dL Creatinine 0.92 0.700-1.30 mg/dL Glomerular Filtration Rate Calc 113 >90 mL/min BUN/Creatinine Ratio 5.4 L 10.0-20.0 Serum Glucose 116 H 74-106 mg/dL Calcium Level 8.5 L 8.7-10.4 mg/dL Current Medications Medications (Trade) Dose Ordered Sig/Yvette Route Start Time Stop Time Status Last Admin Sodium Chloride 1,000 ml @ 1,000 mls/hr Q1H ONCE IV 02/01/25 05:30 02/01/25 06:29 DC 02/01/25 05:35 Levetiracetam 100 ml @ 400 mls/hr ONCE ONCE IV 02/01/25 05:30 02/01/25 05:44 DC 02/01/25 05:34 Ondansetron HCl (Zofran) 4 mg ONCE ONCE IV 02/01/25 05:45 02/01/25 05:46 DC 02/01/25 05:41 Lorazepam (Ativan Inj) 1 mg ONCE ONCE IV 02/01/25 06:45 02/01/25 06:46 DC 02/01/25 06:51 Sodium Chloride 1,000 ml @ 1,000 mls/hr Q1H ONCE IV 02/01/25 06:45 02/01/25 07:44 DC 02/01/25 06:47 Sodium Chloride 1,000 ml @ 150 mls/hr Q6H40M ONCE IV 02/01/25 06:45 02/01/25 13:24 DC 02/01/25 07:43 Ondansetron HCl (Zofran) 4 mg ONCE ONCE IV 02/01/25 09:00 02/01/25 09:01 DC 02/01/25 09:14 Potassium Bicarbonate (Klor-Con/Ef) 25 meq ONCE ONCE PO 02/01/25 10:30 02/01/25 10:31 DC 02/01/25 11:27 Sodium Chloride 1,000 ml @ 1,000 mls/hr Q1H ONCE IV 02/01/25 10:30 02/01/25 11:29 DC 02/01/25 10:39 Sodium Chloride 1,000 ml @ 150 mls/hr Q6H40M ONCE IV 02/01/25 10:30 02/01/25 17:09 02/01/25 10:30 Having nausea. Vitals stable. Possible seizure disorder. Comfortable. Intractable nausea vomiting. Establish intravenous access. Was given fluids. Was given Ativan. Was given Keppra. [place] approved ER visit. [phone]. Time of 1ST Reevaluation: 07:40 Reevaluation 1ST: Unchanged Patient Education/Counseling: Diagnosis, Treatment, Prognosis Family Education/Counseling: No Family Present SEPSIS Sepsis Screen Date sepsis recognized/suspect: Feb 01, 2025 Time Sepsis recognized/suspect: 0502 Recent Procedure: No On Antibiotic Therapy: No Respiratory Rate >20: Yes Heart Rate >90: Yes Temp<36 C (96.8 F) or >38.3 C: No SBP <90 or MAP <65 mmHG: No New Acute Mental Status Change: Yes Is the patient on CPAP, BIPAP,: No Physician Orders Seizure Precautions (02/01/25 ) Titrate Oxygen (02/01/25 05:28) Oxygen (02/01/25 ) Continous Pulse Oximetry (02/01/25 05:28) Saline Lock (02/01/25 05:28) Line Locator (02/01/25 ) Blood Culture (02/01/25 07:11) Imaging Transfer Request (02/01/25 10:08) Sodium Chloride 0.9% (02/01/25 10:30) Vital Signs Date Time Temp Pulse Resp B/P (MAP) Pulse Ox O2 Delivery O2 Flow Rate FiO2 02/01/25 15:16 97.9 95 20 135/70 (91) 99 97.9 02/01/25 12:00 99 02/01/25 11:25 98.0 101 13 148/76 (100) 99 98.0 02/01/25 10:55 Room Air* 0 21 02/01/25 10:31 97.8 95 14 147/75 (99) 98 97.8 02/01/25 08:32 98.0 110 19 137/97 (110) 97 98.0 02/01/25 08:00 112 02/01/25 06:00 97.7 113 25 116/83 (94) 98 97.7 02/01/25 05:41 114 17 169/117 (134) 98 02/01/25 05:31 115 98 Room Air* 0 21 02/01/25 05:06 98.1 125 22 139/97 100 98.1 Laboratory Tests Test 02/01/25 06:57 02/01/25 07:49 02/01/25 09:56 White Blood Count 10.9 10^3/uL (4.4-10.8) H Lactic Acid Level 5.2 mmol/L (0.4-2.0) *H 5.1 mmol/L (0.4-2.0) *H Medications Medications Dose Ordered Sig/Yvette Route Start Time Stop Time Status Last Admin Dose Admin Levetiracetam 100 ml @ 400 mls/hr ONCE ONCE IV 02/01/25 05:30 02/01/25 05:44 DC 02/01/25 05:34 Lorazepam 1 mg ONCE ONCE IV 02/01/25 06:45 02/01/25 06:46 DC 02/01/25 06:51 Ondansetron HCl 4 mg ONCE ONCE IV 02/01/25 05:45 02/01/25 05:46 DC 02/01/25 05:41 Ondansetron HCl 4 mg ONCE ONCE IV 02/01/25 09:00 02/01/25 09:01 DC 02/01/25 09:14 Potassium Bicarbonate 25 meq ONCE ONCE PO 02/01/25 10:30 02/01/25 10:31 DC 02/01/25 11:27 Sodium Chloride 1,000 ml @ 150 mls/hr Q6H40M ONCE IV 02/01/25 06:45 02/01/25 13:24 DC 02/01/25 07:43 Sodium Chloride 1,000 ml @ 150 mls/hr Q6H40M ONCE IV 02/01/25 10:30 02/01/25 17:09 02/01/25 10:30 Sodium Chloride 1,000 ml @ 1,000 mls/hr Q1H ONCE IV 02/01/25 05:30 02/01/25 06:29 DC 02/01/25 05:35 Sodium Chloride 1,000 ml @ 1,000 mls/hr Q1H ONCE IV 02/01/25 06:45 02/01/25 07:44 DC 02/01/25 06:47 Sodium Chloride 1,000 ml @ 1,000 mls/hr Q1H ONCE IV 02/01/25 10:30 02/01/25 11:29 DC 02/01/25 10:39 Departure 1 Departure Time of Disposition: 10:10 Impression: Primary Impression: Metabolic encephalopathy Additional Impression: Seizures Disposition: ADMITTED INPATIENT Admit to: Med Surg Condition: Guarded Critical Care Note Critical Care Time?: Yes (90 min-critical care time only) Stability Stability form required: No Heart Score Heart Score: Heart Score Response (Comments) Value History N/A 0 EKG N/A 0 Age N/A 0 Risk Factors N/A 0 Troponin N/A 0 Total 0 I personally scribed for LACI SANTILLAN MD ([email or web address]) on 02/01/25 at 07:12. Electronically submitted by Rene Ross ([email or web address]). LAIC SANTILLAN MD Feb 01, 2025 07:12
[2025-02-01 07:26] LABS: Hematocrit 41.6 % (41.0-53.0); Hemoglobin 14.5 g/dL (13.5-17.5); Mean Corpuscular Hemoglobin 30.8 pg (28.0-32.0); Mean Corpuscular Volume 88.3 fL (80.0-100.0); Nucleated Red Blood Cells % 0.5 %
[2025-02-01 07:27] LABS: Anion Gap 15 (5-15)
[2025-02-01 07:31] LABS: Calcium 8.5 mg/dL (8.7-10.4); Carbon Dioxide 20 mmol/L (20-31); Chloride 110 mmol/L (98-107); Potassium 3.3 mmol/L (3.5-5.1); Sodium 145 mmol/L (136-145)
[2025-02-01 07:32] LABS: BUN/Creatinine Ratio 5.4 (10.0-20.0); Blood Urea Nitrogen 5 mg/dL (9-23); Glucose 116 mg/dL (74-106)
[2025-02-01 08:47] LABS: Lactic Acid w/Reflex 5.2 mmol/L (0.4-2.0)
[2025-02-01] MEDS: ONDANSETRON HCL 4 MG/2 ML VIAL ONE (09:14)
[2025-02-01] MEDS: POTASSIUM EFFERVESENT TAB 25 MEQ PO ONE (11:27)
[2025-02-01 15:16] VITALS: BP 135/70; PULSE 95; RESP 20; TEMP 97.9; O2SAT 99
== END 2025-02-01 14:33 | disposition short-term general hospital (02) ==
LOC: EDBD 04:58 → ER 04:58
DX: G93.41 Metabolic encephalopathy (principal); R56.9 Unspecified convulsions; Z91.010 Allergy to peanuts
CPT/HCPCS: 36415; 80048; 83605; 85025; 87040; 96361; 96374; 96375; 96376; 99291; 99292; J1953; J2060; J2405; J7030